=== PATIENT | male | born 1935 | race Caucasian/White ===

== ENCOUNTER → 2016-09-01 | Outpatient (CLI) | payer MEDICARE ==
[~2016-09-01] MED LIST: ASPIR 8181 MG PO; ASPIRIN CHILDRE81 MG PO; FLOMAX0.4 MG PO; LIPITOR80 MG PO; LOPRESSOR50 MG PO; NORCO 325 MG-51 TAB PO; PERCOCET 325 MG1 TA7 PO; QUINAPRIL10 M1 PO; ZESTRIL10 MG PO; ZETIA10 MG PO
[2016-09-01 09:30] LABS: HEMATOCRIT 43.2 % (42.0-52.0); HEMOGLOBIN 14.3 g/dl (14.0-18.0); MEAN CELL VOLUME 87.6 fl (80.0-94.0); MEAN CORPUSCULAR HGB CONC 33.1 g/dl (33.0-37.0); MEAN PLATELET VOLUME 10.3 fl (9.6-12.3); PLATELET COUNT AUTOMATED 209 10*3/uL (130-400); RED BLOOD COUNT 4.93 10*6/uL (4.50-5.90); RED CELL DISTRI WIDTH 12.9 % (0-14.5); WHITE BLOOD COUNT 21.9 10*3/uL (4.8-10.8)
[2016-09-01 09:58] LABS: ALBUMIN 3.8 gm/dl (3.1-4.5); BILIRUBIN, DIRECT 0.1 mg/dL (0.0-0.2); BILIRUBIN, TOTAL 0.6 mg/dl (0.2-1.0); BUN 18 mg/dl (7-24); CARBON DIOXIDE 28 mmol/L (21-32); CHLORIDE 107 mmol/L (98-107); CHOLESTEROL 169 mg/dL (<200); EST GLOM FILT AFRICAN AMERICAN > 60 ml/min; GLUCOSE 92 mg/dL (65-99); POTASSIUM 4.3 mmol/L (3.5-5.1); SGOT/AST 15 IU/L (3-35); SGPT/ALT 19 U/L (12-78); SODIUM 141 mmol/L (136-145); THYROXINE (T4) TOTAL 5.8 ug/dl (4.5-12.1); TRIGLYCERIDES 136 mg/dl (<150); VLDL CHOLESTEROL 27 mg/dL (6-40)
[2016-09-01 10:03] LABS: BASOPHIL # 0.2 10*3/uL (0-0.1); BASOPHILS 1 % (0-1); EOSINOPHIL # 0.4 10*3/uL (0-0.4); EOSINOPHILS 2 % (1-4); LYMPHOCYTE # 14.7 10*3/uL (1.3-4.4); MONOCYTE # 1.1 10*3/uL (0.1-1.0); NEUTROPHIL # 5.5 10*3/uL (2.3-7.9); NEUTROPHILS 25 % (47-73); TOTAL CELLS COUNTED 100 #CELLS
[2016-09-01 10:04] LABS: ALKALINE PHOSPHATASE 98 U/L (45-117); HDL CHOLESTEROL 44 mg/dl (40-60); LDL CHOLESTEROL 98 mg/dL (9-159); PLATELET SUFFICIENCY NORMAL (NORMAL)
== END | disposition home or self-care (01) ==
LOC: LAB 08:56
PROVIDERS: Family Medicine
DX: C91.10 Chronic lymphocytic leukemia of B-cell type not having achieved remission (principal); I10 Essential (primary) hypertension

== ENCOUNTER → 2018-12-07 | Day surgery (SDC) | payer MEDICARE ==
[~2018-12-07] VITALS: Ht 172.7 cm; Wt 79.8 kg
[~2018-12-07] MED LIST changes: +AVPAK AZITHROM250 M1 PO; +FISH OIL CONC1000 M1 PO; +MEDROL DOSEPAK4 MG PO; +TESSALON PERLE100 MG PO
--- NOTE | ~2018-12-07 | O ---
[place], [place] OPERATIVE NOTE NAME: NATALIE RENEE UNIT #: [id number] ROOM: DOCTOR: MARY GARCIA MD BIRTHDATE: [birth year] DOS: 12/07/2018 PREOPERATIVE DIAGNOSIS: Cataract, right eye. POSTOPERATIVE DIAGNOSIS: Cataract, right eye. OPERATION: Extracapsular cataract extraction by phacoemulsification with posterior chamber intraocular lens implantation, right eye. ANESTHESIA: Monitored standby. OPERATIVE FINDINGS AND PROCEDURE: 2% Xylocaine topical anesthetic gel was applied to the eye in the preop area. The patient was taken to the operating room and prepped and draped in the standard fashion for sterile intraocular surgery. A time out procedure was performed verifying correct patient, correct site and corrects lens with Reji Garcia M.D. The operating microscope was swung into position and the lid speculum was inserted. Using a Alessia paracentesis blade, a paracentesis was made through clear cornea. Using a 15-degree blade, a paracentesis was made through clear cornea. Sugarcaine, mixture of lidocaine and epinephrine, was injected into the anterior chamber. Viscoelastic was then used to fill the anterior chamber. Using a metal keratome a 2.4 mm self-sealing clear corneal cataract incision was made temporally at the limbus. Using a pre-bent 25 gauge cystotome needle, a standard continuous curvilinear capsulorrhexis was performed. The anterior capsule was removed with forceps. The lens nucleus was hydrodissected and phacoemulsified in the posterior chamber. Cortical material was removed with the irrigation aspiration hand piece and the posterior capsule was then polished with a curet under irrigation. The posterior chamber and capsular bag were filled with viscoelastic. A posterior chamber intraocular lens manufactured by: [employer], Model #[id number], and 20.0 diopters in strength were then inserted into the posterior chamber and within the capsular bag using the lens cartridge and injector system. Viscoelastic was removed using the irrigation aspiration handpiece. The anterior chamber was filled with balanced salt solution through the paracentesis. Both the paracentesis site and cataract incisions were hydrated with BSS and verified to be water-tight and self-sealing. Cefuroxime 1 mg/0.1 mL was injected into the anterior chamber through the paracentesis site. The incision checked to be water-tight using a Weck-Nalini sponge. The integrity of the cataract wound and ocular tension were checked. Lid speculum and drapes were removed. The patient was transferred from the operating room to the recovery room in satisfactory condition. [place], [place] OPERATIVE NOTE NAME: NATALIE RENEE UNIT #: [id number] ROOM: DOCTOR: MARY GARCIA MD BIRTHDATE: [birth year] MARY GARCIA MD CM:OPRECORD:OPERATIVE NOTE [id number] MARY GARCIA MD 12/07/18 1205 interface
[2018-12-07 08:23] VITALS: BP 126/74
[2018-12-07 08:51] VITALS: BP 117/72
[2018-12-07 09:06] VITALS: BP 125/65
== END ==
LOC: SDC 12-01 08:45
DX: H25.11 Age-related nuclear cataract, right eye (principal); I10 Essential (primary) hypertension; M19.90 Unspecified osteoarthritis, unspecified site; Z79.899 Other long term (current) drug therapy; Z87.01 Personal history of pneumonia (recurrent); Z87.891 Personal history of nicotine dependence; Z98.890 Other specified postprocedural states

== ENCOUNTER → 2019-01-11 | Day surgery (SDC) | payer MEDICARE ==
[~2019-01-11] VITALS: Ht 172.7 cm; Wt 79.8 kg
--- NOTE | ~2019-01-11 | O ---
[place], [place] OPERATIVE NOTE NAME: NATALIE RENEE UNIT #: [id number] ROOM: DOCTOR: MARY GARCIA MD BIRTHDATE: [birth year] DOS: 01/11/2019 PREOPERATIVE DIAGNOSIS: Cataract, left eye. POSTOPERATIVE DIAGNOSIS: Cataract, left eye. OPERATION: Extracapsular cataract extraction by phacoemulsification with posterior chamber intraocular lens implantation, left eye. ANESTHESIA: Monitored standby. OPERATIVE FINDINGS AND PROCEDURE: 2% Xylocaine topical anesthetic gel was applied to the eye in the preop area. The patient was taken to the operating room and prepped and draped in the standard fashion for sterile intraocular surgery. A time out procedure was performed verifying correct patient, correct site and corrects lens with Reji Garcia M.D. The operating microscope was swung into position and the lid speculum was inserted. Using a Alessia paracentesis blade, a paracentesis was made through clear cornea. A mixture of preservative free lidocaine 4% and preservative-free epinephrine 1:1000 mixed in balanced solution was injected into the anterior chamber. Viscoelastic was used to fill the anterior chamber. Using a metal keratome a 2.4 mm self-sealing clear corneal cataract incision was made temporally at the limbus. Using a pre-bent 25 gauge cystotome needle, a standard continuous curvilinear capsulorrhexis was performed. The anterior capsule was removed with forceps. The lens nucleus was hydrodissected and phacoemulsified in the posterior chamber. Cortical material was removed with the irrigation aspiration hand piece and the posterior capsule was then polished with a curet under irrigation. The posterior chamber and capsular bag were filled with viscoelastic. A posterior chamber intraocular lens manufactured by: [employer], Model #[id number] and 19.0 diopters in strength were then inserted into the posterior chamber and within the capsular bag using the lens cartridge and injector system. Viscoelastic was removed using the irrigation aspiration handpiece. The anterior chamber was filled with balanced salt solution through the paracentesis. Both the paracentesis site and cataract incisions were hydrated with BSS and verified to be water-tight and self-sealing. Cefuroxime 1 mg/0.1 mL was injected into the anterior chamber through the paracentesis site. The incision checked to be water-tight using a Weck-Nalini sponge. The integrity of the cataract wound and ocular tension were checked. Lid speculum and drapes were removed. The patient was transferred from the operating room to the recovery room in satisfactory condition. [place], [place] OPERATIVE NOTE NAME: NATALIE RENEE UNIT #: [id number] ROOM: DOCTOR: MARY GARCIA MD BIRTHDATE: [birth year] MARY GARCIA MD CM:OPRECORD:OPERATIVE NOTE [id number] MARY GARCIA MD 01/11/19 1150 interface
[2019-01-11 08:00] VITALS: BP 148/76
[2019-01-11 09:10] VITALS: BP 116/54
[2019-01-11 09:25] VITALS: BP 115/62
[2019-01-11 09:40] VITALS: BP 114/58
== END | disposition home or self-care (01) ==
LOC: SDC 01-05 13:15
DX: H25.812 Combined forms of age-related cataract, left eye (principal); I10 Essential (primary) hypertension; Z98.890 Other specified postprocedural states

== ENCOUNTER → 2019-02-20 | Outpatient (CLI) | payer MEDICARE | END | disposition home or self-care (01) | LOC: CT 10:58 | DX: J32.9 Chronic sinusitis, unspecified (principal); R19.6 Halitosis ==

== ENCOUNTER 2020-06-21 11:16 | Emergency (ER) | payer MEDICARE ==
[~2020-06-21] VITALS: Ht 170.1 cm; Wt 79.4 kg
[2020-06-21 11:38] LABS: HEMATOCRIT 44.5 % (42.0-52.0); MEAN CELL VOLUME 90.3 fl (80.0-94.0); MEAN CORPUSCULAR HGB 29.6 pg (27.0-31.0); MEAN CORPUSCULAR HGB CONC 32.8 g/dl (33.0-37.0); MEAN PLATELET VOLUME 9.7 fl (9.6-12.3); PLATELET COUNT AUTOMATED 157 10*3/uL (130-400); RED BLOOD COUNT 4.93 10*6/uL (4.50-5.90); RED CELL DISTRI WIDTH 13.3 % (0-14.5)
[2020-06-21 11:48] LABS: ACT PARTIAL THROMBO TIME 23.1 SECONDS (20.0-32.1)
[2020-06-21 11:56] LABS: ALBUMIN 4.1 gm/dl (3.1-4.5); ALKALINE PHOSPHATASE 100 U/L (45-117); BUN 20 mg/dl (7-24); CHLORIDE 105 mmol/L (98-107); CREATININE 1.23 mg/dL (0.70-1.30); POTASSIUM 3.9 mmol/L (3.5-5.1); SGOT/AST 17 IU/L (3-35); SGPT/ALT 22 U/L (12-78); SODIUM 138 mmol/L (136-145)
[2020-06-21 11:58] LABS: PLATELET SUFFICIENCY NORMAL (NORMAL); TOTAL CELLS COUNTED 100 #CELLS
== END 2020-06-21 12:00 | disposition short-term general hospital (02) ==
LOC: ED 11:16
PROVIDERS: Emergency Medicine
DX: I21.3 ST elevation (STEMI) myocardial infarction of unspecified site (principal); I10 Essential (primary) hypertension; Z87.891 Personal history of nicotine dependence

== ENCOUNTER 2021-04-14 08:27 | Emergency (ER) | payer MEDICARE ==
[~2021-04-14] VITALS: Wt 79.4 kg
[2021-04-14 09:12] LABS: HEMATOCRIT 37.7 % (42.0-52.0); MEAN CELL VOLUME 93.5 fl (80.0-94.0); MEAN CORPUSCULAR HGB 30.8 pg (27.0-31.0); MEAN CORPUSCULAR HGB CONC 32.9 g/dl (33.0-37.0); MEAN PLATELET VOLUME 9.3 fl (9.6-12.3); PLATELET COUNT AUTOMATED 150 10*3/uL (130-400); RED BLOOD COUNT 4.03 10*6/uL (4.50-5.90); RED CELL DISTRI WIDTH 13.3 % (0-14.5); WHITE BLOOD COUNT 21.9 10*3/uL (4.8-10.8)
[2021-04-14 09:29] LABS: ALBUMIN 3.7 gm/dl (3.1-4.5); ALKALINE PHOSPHATASE 120 U/L (45-117); BUN 11 mg/dl (7-24); CHLORIDE 104 mmol/L (98-107); CREATININE 1.17 mg/dL (0.70-1.30); PLATELET SUFFICIENCY NORMAL (NORMAL); POTASSIUM 4.3 mmol/L (3.5-5.1); SGOT/AST 21 IU/L (3-35); SGPT/ALT 23 U/L (12-78); SODIUM 137 mmol/L (136-145); TOTAL CELLS COUNTED 100 #CELLS
[2021-04-14] MEDS ORDERED: PREDNISONE50 MG PO (10:48)
[2021-04-14] MEDS ORDERED: PROAIR HFA8.5 GM INH (10:48)
== END 2021-04-14 10:55 | disposition home or self-care (01) ==
LOC: ED 08:27
PROVIDERS: Student in an Organized Health Care Education/Training Program
DX: J44.1 Chronic obstructive pulmonary disease with (acute) exacerbation (principal); Z79.899 Other long term (current) drug therapy; Z87.891 Personal history of nicotine dependence

== ENCOUNTER → 2021-05-01 | Outpatient (CLI) | payer MEDICARE ==
[~2021-05-01] MED LIST changes: +PREDNISONE50 MG PO; +PROAIR HFA8.5 GM INH
[2021-05-01 09:11] LABS: HEMATOCRIT 39.1 % (42.0-52.0); MEAN CELL VOLUME 93.8 fl (80.0-94.0); MEAN CORPUSCULAR HGB 30.9 pg (27.0-31.0); PLATELET COUNT AUTOMATED 142 10*3/uL (130-400); RED BLOOD COUNT 4.17 10*6/uL (4.50-5.90); RED CELL DISTRI WIDTH 13.8 % (0-14.5)
[2021-05-01 10:15] LABS: TOTAL CELLS COUNTED 100 #CELLS
[2021-05-01 10:16] LABS: PLATELET SUFFICIENCY NORMAL (NORMAL)
== END | disposition home or self-care (01) ==
LOC: LAB 08:39
PROVIDERS: ATTEND Internal Medicine Hematology & Oncology
DX: C91.10 Chronic lymphocytic leukemia of B-cell type not having achieved remission (principal)

== ENCOUNTER 2021-08-11 09:08 | Observation (INO) | payer MEDICARE ==
[~2021-08-11] VITALS: Ht 170.2 cm; Wt 78.5 kg
[2021-08-11 09:19] VITALS: BP 134/70
[2021-08-11 09:25] LABS: HEMATOCRIT 37.5 % (42.0-52.0); MANUAL DIFF REFLEX YES; MEAN CORPUSCULAR HGB 31.3 pg (27.0-31.0); MEAN CORPUSCULAR HGB CONC 33.3 g/dl (33.0-37.0); MEAN PLATELET VOLUME 9.1 fl (9.6-12.3); PLATELET COUNT AUTOMATED 128 10*3/uL (130-400); RED BLOOD COUNT 3.99 10*6/uL (4.50-5.90); RED CELL DISTRI WIDTH 13.3 % (0-14.5); WHITE BLOOD COUNT 24.1 10*3/uL (4.8-10.8)
[2021-08-11 09:36] LABS: ACT PARTIAL THROMBO TIME 22.3 SECONDS (20.0-32.1); INTERNATIONAL NORM RATIO 1.1 (2.0-3.5)
[2021-08-11 09:40] LABS: ALKALINE PHOSPHATASE 101 U/L (45-117); BUN 20 mg/dl (7-24); CHLORIDE 109 mmol/L (98-107); CREATININE 1.22 mg/dL (0.70-1.30); SGOT/AST 21 IU/L (3-35); SGPT/ALT 20 U/L (12-78); SODIUM 142 mmol/L (136-145); TOTAL PROTEIN 6.4 gm/dL (6.4-8.2)
[2021-08-11 10:03] LABS: OVALOCYTES FEW; PLATELET SUFFICIENCY LOW (NORMAL); TOTAL CELLS COUNTED 100 #CELLS
[2021-08-11 16:00] VITALS: BP 116/66
[2021-08-11] MEDS ORDERED: LIPITOR20 MG PO (17:55)
[2021-08-11] MEDS ORDERED: METOPROLOL SUCC25 M2 PO (17:55)
[2021-08-11] MEDS ORDERED: ASPIRIN CHEWABL81 MG PO (17:56)
[2021-08-11] MEDS ORDERED: FLOMAX0.4 MG PO (17:56)
[2021-08-11 20:00] VITALS: BP 138/76
[2021-08-12] VITALS: BP 138/67
[2021-08-12 06:52] LABS: MEAN CORPUSCULAR HGB 31.3 pg (27.0-31.0); MEAN CORPUSCULAR HGB CONC 33.3 g/dl (33.0-37.0); MEAN PLATELET VOLUME 9.2 fl (9.6-12.3); NUCLEATED RED BLOOD CELL 0.1 % (0.0-0.0); PLATELET COUNT AUTOMATED 143 10*3/uL (130-400); RED BLOOD COUNT 4.47 10*6/uL (4.50-5.90); RED CELL DISTRI WIDTH 13.4 % (0-14.5); WHITE BLOOD COUNT 23.1 10*3/uL (4.8-10.8)
[2021-08-12 06:53] LABS: MANUAL DIFF REFLEX YES
[2021-08-12 07:13] LABS: CHLORIDE 106 mmol/L (98-107); SODIUM 139 mmol/L (136-145)
[2021-08-12 07:17] LABS: ATYPICAL LYMPHS 3 % (0-0); TOTAL CELLS COUNTED 100 #CELLS
[2021-08-12 07:19] LABS: OVALOCYTES FEW; PLATELET SUFFICIENCY NORMAL (NORMAL); POLYCHROMASIA SLIGHT
[2021-08-12 07:35] LABS: BUN 19 mg/dl (7-24); CHOLESTEROL 103 mg/dL (<200); LDL CHOLESTEROL 45 mg/dL (9-159); TRIGLYCERIDES 116 mg/dl (<150)
[2021-08-12 08:00] VITALS: BP 147/71
[2021-08-12 12:00] VITALS: BP 118/76
[2021-08-12 15:11] VITALS: BP 119/78
== END 2021-08-12 17:50 | disposition home or self-care (01) ==
LOC: ED 09:08 → EDHOLD 11:18 → 5E 11:18
PROVIDERS: Emergency Medicine; Student in an Organized Health Care Education/Training Program; ADMIT Family Medicine; ATTEND Family Medicine
DX: R07.89 Other chest pain (principal); D64.9 Anemia, unspecified; E87.8 Other disorders of electrolyte and fluid balance, not elsewhere classified; D72.820 Lymphocytosis (symptomatic); D69.6 Thrombocytopenia, unspecified; E44.0 Moderate protein-calorie malnutrition; I12.9 Hypertensive chronic kidney disease with stage 1 through stage 4 chronic kidney disease, or unspecified chronic kidney disease; N18.31 Chronic kidney disease, stage 3a; N40.0 Benign prostatic hyperplasia without lower urinary tract symptoms; C91.10 Chronic lymphocytic leukemia of B-cell type not having achieved remission; I25.10 Atherosclerotic heart disease of native coronary artery without angina pectoris; E83.41 Hypermagnesemia; Z87.891 Personal history of nicotine dependence; Z79.899 Other long term (current) drug therapy; Z79.82 Long term (current) use of aspirin

== ENCOUNTER → 2023-01-25 | Outpatient (CLI) | payer MEDICARE ==
[~2023-01-25] MED LIST changes: +ASPIRIN CHEWABL81 MG PO; +LIPITOR20 MG PO; +METOPROLOL SUCC25 M2 PO
== END | disposition home or self-care (01) ==
LOC: RAD 12:25
PROVIDERS: ATTEND Nurse Practitioner Family
DX: J18.9 Pneumonia, unspecified organism (principal); C44.310 Basal cell carcinoma of skin of unspecified parts of face; R53.83 Other fatigue

== ENCOUNTER 2023-11-28 10:38 | Emergency (ER) | payer MEDICARE ==
[~2023-11-28] VITALS: Ht 172.7 cm; Wt 65.3 kg
[~2023-11-28 10:38] MED LIST changes: +AMOX-CLAV 875-1 EACH PO; +KLOR-CON M2020 ME1 PO; +LASIX40 MG PO; +MILLTRIUM SENI1 EACH PO; +NATURE'S BLEND F1 MG PO; +PREDNISONE10 MG PO; +TAMSULOSIN HCL0.4 MG PO; +VIBRAMYCIN100 MG PO
[2023-11-28] MEDS ORDERED: Lidocaine Hydrochloride 15 ML UDC PO STA (11:00)
[2023-11-28] MEDS ORDERED: Dicyclomine Hydrochloride 20 MG/10 ML OSYR PO STA (11:00)
[2023-11-28] MEDS ORDERED: MG-AL HYDROXIDE/SIMETICONE 30 ML UDC PO STA (11:00)
[2023-11-28] MEDS ORDERED: Pantoprazole Sodium 40 MG TAB PO ONE (11:05)
[2023-11-28] MEDS ORDERED: FLUCONAZOLE 100 MG TAB PO ONE (11:05)
[2023-11-28] MEDS ORDERED: FLUONAZOLE200 M1 PO (11:10)
[2023-11-28] MEDS ORDERED: PROTONIX40 MG PO (11:10)
== END 2023-11-28 11:45 | disposition home or self-care (01) ==
LOC: ED 10:38
DX: K20.90 Esophagitis, unspecified without bleeding (principal); Z85.6 Personal history of leukemia; Z79.899 Other long term (current) drug therapy; Z79.82 Long term (current) use of aspirin; Z89.029 Acquired absence of unspecified finger(s); Z95.5 Presence of coronary angioplasty implant and graft; Z98.890 Other specified postprocedural states; Z87.891 Personal history of nicotine dependence